=== PATIENT | female | born 1950 | race Caucasian/White ===

== ENCOUNTER → 2016-10-16 | Outpatient (CLI) | payer OTHER, BC | LOC: BMCIMAGING 12:29 | PROVIDERS: ATTEND Family Medicine | DX: R05 Cough (principal) ==

== ENCOUNTER → 2018-11-12 | Outpatient (CLI) | payer OTHER, BC | LOC: BMCIMAGING 14:47 ==

== ENCOUNTER → 2018-11-15 | Outpatient (CLI) | payer OTHER, BC | LOC: FIMAGING 08:44 ==